=== PATIENT | male | born 1960 | race Caucasian/White ===

== ENCOUNTER 2019-09-07 19:05 | Inpatient (IN) | payer BC ==
[~2019-09-07] VITALS: Ht 172.7 cm; Wt 88.0 kg
[2019-09-07] VITALS (8 sets, daily range): BP systolic 126–158; BP diastolic 74–98
[~2019-09-07 19:05] MED LIST: ALBU0.63 IH; AMOX-355 PO; FEXO180T84 PO; FLUT10SP NS; HYDR-3455 PO; LOSA50TA63 PO; MOME13HF2 IH; PRD20T PO; PRED20TA PO; SIMV40TA25 PO
[2019-09-07] MEDS ORDERED: REMDESIVIR INJ (FREE STOCK) 200 MG in NS (IVPB) 210 ML IV ONE (19:45)
[2019-09-07] MEDS ORDERED: ACETAMINOPHEN 325 MG TABLET PO PRN (19:45)
[2019-09-07] MEDS ORDERED: ONDANSETRON 4 MG/2 ML (SDV) Z0FRAN IV PRN (19:45)
--- NOTE | 2019-09-07 21:00 | NUR ---
Spoke with Dr. Acosta and informed her that the hospital does not stock Remdesivir at night that pharmacy would have to be called in to mix medication. Orders received to hold medication till am.
[2019-09-07] MEDS: NS IV 1000 ML 1,000 ML IV SCH (23:00)
[2019-09-07] MEDS: AZITHROMYCIN INJECTION 500 MG in NS (IVPB) 250 ML IV SCH (23:01)
[2019-09-07] MEDS: CEFEPIME INJECTION 2,000 MG in WATER (STERILE) FOR INJECTION 20 ML IV SCH (23:01)
[2019-09-07] MEDS: ENOXAPARIN 40 MG/0.4 ML (LOVENOX) SYR SC SCH (23:02)
--- NOTE | 2019-09-07 23:20 | NUR ---
Spoke with pt and he states "jacqueline did not give me Remdesivir". Educated pt on Remdesivir fact sheet. Pt consents to administration of Remdesivir. Informed pt he would receive medication in the am. Remdesivir fact sheet given to patient.
[2019-09-07 23:36] LABS: ALBUMIN 3.6 GM/DL (3.2-4.5); CHLORIDE 100 MMOL/L (98-107); POTASSIUM 4.4 MMOL/L (3.6-5.0); SODIUM 134 MMOL/L (135-145)
[2019-09-07 23:37] LABS: CALCIUM 8.4 MG/DL (8.5-10.1)
[2019-09-07 23:38] LABS: GLUCOSE 171 MG/DL (70-105)
[2019-09-07 23:39] LABS: TOTAL PROTEIN 6.8 GM/DL (6.4-8.2)
[2019-09-07 23:40] LABS: BILIRUBIN,TOTAL 0.5 MG/DL (0.1-1.0); CARBON DIOXIDE 22 MMOL/L (21-32)
[2019-09-07 23:42] LABS: ALKALINE PHOSPHATASE 53 U/L (40-136); CREATININE SERUM 0.93 MG/DL (0.60-1.30); GFR ESTIMATED > 60
[2019-09-07 23:43] LABS: BUN/CREATININE RATIO 16
[2019-09-07 23:45] LABS: ALANINE AMINOTRANSFERASE 21 U/L (0-55)
[2019-09-08] VITALS (17 sets, daily range): BP systolic 126–168; BP diastolic 74–97
[2019-09-08 04:18] LABS: BASOPHILS % (AUTO) 0 % (0-10); EOSINOPHILS % (AUTO) 0 % (0-10); HEMATOCRIT 33 % (40-54); HEMOGLOBIN 11.4 G/DL (13.3-17.7); LYMPHOCYTES # (AUTO) 0.7 X 10^3 (1.0-4.0); LYMPHOCYTES % (AUTO) 6 % (12-44); MEAN CORPUSCULAR HEMOGLOBIN 30 PG (25-34); MEAN CORPUSCULAR HGB CONC 35 G/DL (32-36); MEAN CORPUSCULAR VOLUME 87 FL (80-99); MEAN PLATELET VOLUME 9.5 FL (7.4-10.4); MONOCYTES # (AUTO) 0.3 X 10^3 (0.0-1.0); MONOCYTES % (AUTO) 3 % (0-12); NEUTROPHILS # (AUTO) 9.9 X 10^3 (1.8-7.8); NEUTROPHILS % (AUTO) 91 % (42-75); PLATELET COUNT 341 10^3/uL (130-400); RED CELL DISTRIBUTION WIDTH 13.6 % (10.0-14.5); WHITE BLOOD COUNT 10.8 10^3/uL (4.3-11.0)
[2019-09-08 04:44] LABS: ALBUMIN 3.4 GM/DL (3.2-4.5); CHLORIDE 101 MMOL/L (98-107); POTASSIUM 4.2 MMOL/L (3.6-5.0); SODIUM 135 MMOL/L (135-145)
[2019-09-08 04:45] LABS: CALCIUM 8.2 MG/DL (8.5-10.1)
[2019-09-08 04:46] LABS: GLUCOSE 179 MG/DL (70-105)
[2019-09-08 04:47] LABS: TOTAL PROTEIN 6.7 GM/DL (6.4-8.2)
[2019-09-08 04:48] LABS: BILIRUBIN,TOTAL 0.5 MG/DL (0.1-1.0); CARBON DIOXIDE 22 MMOL/L (21-32)
[2019-09-08 04:50] LABS: ALKALINE PHOSPHATASE 52 U/L (40-136); CREATININE SERUM 0.92 MG/DL (0.60-1.30); GFR ESTIMATED > 60; PHOSPHORUS 3.7 MG/DL (2.3-4.7)
[2019-09-08 04:51] LABS: BUN/CREATININE RATIO 18
[2019-09-08 04:53] LABS: ALANINE AMINOTRANSFERASE 21 U/L (0-55); MAGNESIUM 2.5 MG/DL (1.6-2.4)
[2019-09-08 05:22] LABS: ANISOCYTOSIS SLIGHT; ATYPICAL LYMPHOCYTES 2 %; HYPOCHROMASIA SLIGHT; LYMPHOCYTES % (MANUAL) 5 %; MONOCYTES % (MANUAL) 1 %; NEUTROPHILS % (MANUAL) 92 %
[2019-09-08] MEDS: POTASSIUM CL 10MEQ/50ML IVPB 50 ML IV SCH (05:55)
[2019-09-08] MEDS: MAGNESIUM 1 GM/100 ML IVPB 100 ML IV SCH (05:55)
[2019-09-08] MEDS: KCL 20 MEQ TAB (K-DUR) PO SCH (05:57)
--- NOTE | 2019-09-08 07:03 | NUR ---
ORDERS RECEIVED FROM DR. MILIAN PROTOCOL.
[2019-09-08] MEDS ORDERED: REMDESIVIR INJ (FREE STOCK) 200 MG in NS (IVPB) 210 ML IV ONE (08:00)
[2019-09-08] MEDS: dexAMETHasone 6 MG TAB (DECADRON) PO SCH (08:10)
[2019-09-08] MEDS: CEFEPIME INJECTION 2,000 MG in WATER (STERILE) FOR INJECTION 20 ML IV SCH ×2 (08:11→19:32)
[2019-09-08] MEDS ORDERED: TMSL.4C PO (08:27)
[2019-09-08] MEDS ORDERED: MAGN500C15 PO (08:27)
[2019-09-08] MEDS ORDERED: MONT10TA26 PO (08:27)
[2019-09-08] MEDS ORDERED: METH16TA2 PO (08:27)
[2019-09-08] MEDS ORDERED: SIMV80TA21 PO (08:27)
[2019-09-08] MEDS ORDERED: LOSA100T57 PO (08:27)
[2019-09-08] MEDS ORDERED: REMDESIVIR IV ONE (08:29)
[2019-09-08] MEDS ORDERED: ALBU1.25 INH (08:29)
[2019-09-08] MEDS ORDERED: NS IV ONE (08:29)
[2019-09-08] MEDS ORDERED: IPRA0.2S51 IH (08:29)
[2019-09-08] MEDS ORDERED: REMDESIVIR INJ (FREE STOCK) 100 MG in NS (IVPB) 230 ML IV SCH (09:00)
--- NOTE | 2019-09-08 09:25 | Diagnostic Imaging Report ---
INDICATION: Respiratory failure and hypoxia. Comparison made with prior examination from 06/15/2014. FINDINGS: Heart size is normal. There are bibasal infiltrates. There is no pleural effusion or pneumothorax. Mediastinum is unremarkable. IMPRESSION: Bibasal infiltrates left greater than right suspect for pneumonia. Dictated by: Dictated on workstation # [id number]
[2019-09-08] MEDS ORDERED: ALBUTEROL/IPRATROP (COMBIVENT RESPIMAT) 4 GM INHALER IH PRN (10:00)
[2019-09-08] MEDS: NS IV 1000 ML 1,000 ML IV SCH ×2 (10:10→14:11)
--- NOTE | 2019-09-08 10:52 | History & Physical-Hospitalist ---
History of Present Illness HPI/Chief Complaint Pt is a 59yoCM with a PMH of HTN and asthma who was direct admitted due to hypoxia and COVID. He states he became symptomatic on 08/28 and was tested on 09/01 and found out he was positive on 09/03 at [place]. He was discharged from there on 09/04 and had been home monitoring his symptoms and using his inhalers 4x/day. Per ER report he was checking his sats at home and when they dropped to the 70s he decided to seek care in the ER. Per ER MARKET MANAGER he had significant work of breathing and was given solu medrol and a breathing treatment and improved significantly. This morning he states he is feeling better but has a 5 minute coughing spell around 630AM that made his sats drop. He otherwise has no complaints. Source: patient Date Seen 09/08/19 Time Seen by a Provider: 10:47 Attending Physician Ember Acosta MD PCP No,Local Physician Referring Physician Date of Admission Sep 07, 2019 at 20:04 Home Medications & Allergies Home Medications Reviewed patient Home Medication Reconciliation performed by pharmacy medication reconciliations radiation therapy technician and/or nursing. Patients Allergies have been reviewed. Allergies Allergies Coded Allergies lisinopril (Verified Allergy, Severe, ANAPHYLAXIS, 10/16/14) Past Ttcgetl-Jkogqj-Vrziox Hx Past Med/Social Hx: Reviewed Nursing Past Med/Soc Hx Patient Social History Marrital Status: Employed/Student: employed Alcohol Use: Denies Use Recreational Drug Use: No Smoking Status: Never a Smoker Physical Abuse Screen: No Sexual Abuse: No Recent Foreign Travel: No Contact w/other who traveled: No Recent Hopitalizations: Yes (covid positive-[employer]) Recent Infectious Disease Expo: No Immunizations Up To Date Pediatric: Yes Seasonal Allergies Seasonal Allergies: No Past Medical History Respiratory: Asthma Currently Using CPAP: No Currently Using BIPAP: No Cardiac: Hypertension Reproductive: No Sexually Transmitted Disease: No HIV/AIDS: No Musculoskeletal: Chronic Back Pain Hearing Impairment: Hard of Hearing, Bilateral Hearing Aide History of Blood Disorders: No Adverse Reaction to Blood Sage: No Family History Reviewed Nursing Family Hx No Pertinent Family Hx Review of Systems Constitutional: chills, fever, malaise EENTM: no symptoms reported Respiratory: cough, short of breath Cardiovascular: No chest pain Gastrointestinal: No abdominal pain, No nausea, No vomiting Genitourinary: no symptoms reported Musculoskeletal: no symptoms reported Skin: no symptoms reported Psychiatric/Neurological: No Symptoms Reported Physical Exam Physical Exam Vital Signs Vital Signs - First Documented 09/07/19 09/07/19 09/08/19 20:12 20:16 08:15 Temp 37.7 Pulse 80 Resp 23 B/P (MAP) 140/83 (102) Pulse Ox 94 O2 Delivery Nasal Cannula O2 Flow Rate 2.00 FiO2 95 Capillary Refill : Less Than 3 Seconds Height, Weight, BMI Height: 5'8.00" Weight: 199lbs. oz. 90.010309kl; 28.70 BMI Method:Stated General Appearance: No Apparent Distress, WD/WN HEENT: PERRL/EOMI, Moist Mucous Membranes; No Scleral Icterus (L), No Scleral I cterus (R) Neck: Normal Inspection, Supple; No Thyromegaly Respiratory: Lungs Clear, No Accessory Muscle Use; No Wheezing; Other (on 4lpm) Cardiovascular: Regular Rate, Rhythm, No Murmur Gastrointestinal: Normal Bowel Sounds, Non Tender, Soft Extremity: Normal Capillary Refill, No Calf Tenderness, No Pedal Edema Neurologic/Psychiatric: Alert, Oriented x3, Normal Mood/Affect Skin: Normal Color, Warm/Dry Results Results/Procedures Labs Laboratory Tests 09/07/19 23:15 09/08/19 04:10 Patient resulted labs reviewed. Imaging: Reviewed Imaging Report [facility] Talk [place] NAME: KENIA TOM [facility] REC#: [id number] PT STATUS: ADM IN : 1960 PHYSICIAN: EMBER ACOSTA MD ADMIT DATE: 09/07/19/ICU Draft Date of Exam:09/08/19 CHEST 1 VIEW, AP/PA ONLY INDICATION: Respiratory failure and hypoxia. Comparison made with prior examination from 06/15/2014. FINDINGS: Heart size is normal. There are bibasal infiltrates. There is no pleural effusion or pneumothorax. Mediastinum is unremarkable. IMPRESSION: Bibasal infiltrates left greater than right suspect for pneumonia. Dictated on workstation # [id number] Dict: 09/08/19 0854 Trans: 09/08/19 0925 [facility] [id number] Interpreted by: GARRET FREEMAN MD Electronically signed by: Assessment/Plan Admission Diagnosis Acute Hypoxic Respiratory Failure Admission Status: Inpatient Order (span 2 midnights) Reason for Inpatient Admission: see below Assessment and Plan Acute Hypoxic Respiratory Failure COVID19+ Bilateral pneumonia Doing better today Continue Remdesivir, patient agreed to experimental use Continue decadron MAT protol Resume home inhalers and singulair Continue Cefepime and Azithro for pneumonia as procal elevated HTN Resume losartan Hyperglycemia Was on medrol dose pack as an outpatient Currently on decadron Likely due to steroids SSI DVT ppx; Lovenox Clinical Quality Measures DVT/VTE Risk/Contraindication: Risk Factor Score Per Nursin RFS Level Per Nursing on Admit: 3=High EMBER ACOSTA MD Sep 08, 2019 10:52
[2019-09-08] MEDS ORDERED: LOSARTAN 100 MG (COZAAR) TABLET PO NR (11:00)
[2019-09-08] MEDS: ALBUTEROL/IPRATROP (COMBIVENT RESPIMAT) 4 GM INHALER IH SCH ×2 (11:12→16:04)
[2019-09-08] MEDS: inSUlin ASPART (NovoLOG) 1 UNIT/0.01 ML (CHARGE PER UNIT) SC SCH ×3 (12:03→19:32)
[2019-09-08] MEDS: TAMSULOSIN 0.4 MG (FLOMAX) CAP PO SCH (16:48)
[2019-09-08] MEDS ORDERED: MELATONIN 3 MG TABLET PO PRN (17:15)
[2019-09-08] MEDS ORDERED: BENZONATATE 100 MG (TESSALON) CAPSULE PO PRN (17:15)
[2019-09-08] MEDS ORDERED: ANTACID SUSP 30 ML UDC (MYLANTA) PO PRN (17:15)
[2019-09-08] MEDS ORDERED: MILK OF MAGNESIA 400 MG/5 ML 30 ML UDC PO PRN (17:15)
[2019-09-08] MEDS ORDERED: ONDANSETRON 4 MG/2 ML (SDV) Z0FRAN IV PRN (17:15)
[2019-09-08] MEDS ORDERED: ACETAMINOPHEN 325 MG TABLET PO PRN (17:15)
[2019-09-08] MEDS: ADVAIR HFA 115/21 MCG INHALER 8 GM IH SCH (19:15)
[2019-09-08] MEDS: MONTELUKAST 10 MG (SINGULAIR) TAB PO SCH (19:31)
[2019-09-08] MEDS: AZITHROMYCIN INJECTION 500 MG in NS (IVPB) 250 ML IV SCH (19:31)
[2019-09-08] MEDS: ENOXAPARIN 40 MG/0.4 ML (LOVENOX) SYR SC SCH (19:31)
[2019-09-08] MEDS ORDERED: SIMvastatin 40 MG (ZOCOR) TAB PO SCH (21:00)
[2019-09-09 03:18] LABS: BASOPHILS % (AUTO) 0 % (0-10); EOSINOPHILS % (AUTO) 0 % (0-10); HEMATOCRIT 31 % (40-54); HEMOGLOBIN 10.7 G/DL (13.3-17.7); LYMPHOCYTES % (AUTO) 7 % (12-44); MEAN CORPUSCULAR HEMOGLOBIN 30 PG (25-34); MEAN CORPUSCULAR HGB CONC 34 G/DL (32-36); MEAN CORPUSCULAR VOLUME 87 FL (80-99); MEAN PLATELET VOLUME 9.6 FL (7.4-10.4); MONOCYTES # (AUTO) 0.7 X 10^3 (0.0-1.0); MONOCYTES % (AUTO) 5 % (0-12); NEUTROPHILS # (AUTO) 12.5 X 10^3 (1.8-7.8); NEUTROPHILS % (AUTO) 88 % (42-75); PLATELET COUNT 357 10^3/uL (130-400); RED CELL DISTRIBUTION WIDTH 13.5 % (10.0-14.5); WHITE BLOOD COUNT 14.2 10^3/uL (4.3-11.0)
[2019-09-09 03:24] VITALS: BP 145/82
[2019-09-09] MEDS: NS IV 1000 ML 1,000 ML IV SCH (03:25)
[2019-09-09 03:37] LABS: CHLORIDE 106 MMOL/L (98-107); POTASSIUM 4.3 MMOL/L (3.6-5.0); SODIUM 134 MMOL/L (135-145)
[2019-09-09 03:38] LABS: CALCIUM 8.1 MG/DL (8.5-10.1)
[2019-09-09 03:39] LABS: GLUCOSE 153 MG/DL (70-105)
[2019-09-09] MEDS: POTASSIUM CL 10MEQ/50ML IVPB 50 ML IV SCH (03:40)
[2019-09-09 03:41] LABS: CARBON DIOXIDE 19 MMOL/L (21-32)
[2019-09-09] MEDS: KCL 20 MEQ TAB (K-DUR) PO SCH (03:41)
[2019-09-09 03:43] LABS: CREATININE SERUM 0.75 MG/DL (0.60-1.30); GFR ESTIMATED > 60; PHOSPHORUS 2.6 MG/DL (2.3-4.7)
[2019-09-09 03:44] LABS: BUN/CREATININE RATIO 25
[2019-09-09 03:45] LABS: MAGNESIUM 2.6 MG/DL (1.6-2.4)
[2019-09-09] MEDS: MAGNESIUM 1 GM/100 ML IVPB 100 ML IV SCH (03:48)
[2019-09-09] MEDS: inSUlin ASPART (NovoLOG) 1 UNIT/0.01 ML (CHARGE PER UNIT) SC SCH ×4 (05:33→21:00)
[2019-09-09] MEDS: dexAMETHasone 6 MG TAB (DECADRON) PO SCH (06:10)
[2019-09-09] MEDS: ALBUTEROL/IPRATROP (COMBIVENT RESPIMAT) 4 GM INHALER IH SCH ×4 (07:46→19:00)
[2019-09-09] MEDS: ADVAIR HFA 115/21 MCG INHALER 8 GM IH SCH ×2 (07:52→20:00)
[2019-09-09] MEDS: UMECLIDINIUM BROMIDE (INCRUSE ELLIPTA) 7'S IH SCH (07:53)
[2019-09-09] MEDS ORDERED: TIOTROPIUM BROMIDE (SPIRIVA) 5'S INHALER IH SCH (08:00)
[2019-09-09] MEDS: LOSARTAN 100 MG (COZAAR) TABLET PO SCH (08:47)
[2019-09-09] MEDS: CEFEPIME INJECTION 2,000 MG in WATER (STERILE) FOR INJECTION 20 ML IV SCH ×2 (08:47→21:00)
[2019-09-09] MEDS: REMDESIVIR INJ (NON-FORMULARY) 100 MG in NS (IVPB) 230 ML IV SCH (08:47)
[2019-09-09 08:58] VITALS: BP 126/78
[2019-09-09] MEDS ORDERED: REMDESIVIR INJ (FREE STOCK) 100 MG in NS (IVPB) 230 ML IV SCH (09:00)
--- NOTE | 2019-09-09 09:47 | NUR ---
SPOKE WITH PATIENT REGARDING PRONING. HE STATES THAT HE "HAS NEVER BEEN ABLE TO LAY ON MY STOMACH". HE STATED THAT HE "CANNOT SLEEP THAT WAY". ADVISED PATIENT THAT I WOULD REPOSITION BED SO HE COULD WATCH TV AND HE DID NOT HAVE TO SLEEP WHILE PRONED. EXPLAINED THAT THIS WAS FOR HIS LUNGS. PT STATED HE DIDN'T THINK HE WOULD BE ABLE TO LAY ON HIS ABDOMEN BUT WOULD TRY. PT GETTING BLOOD CULTURES DONE PRESENTLY AND HAS ONE HOUR REMAINING ON REMDESEVIR. WILL ASSIST PATIENT TO PRONE POSITION WHEN THIS IS DONE.
[2019-09-09 10:36] VITALS: BP 145/82
--- NOTE | 2019-09-09 12:33 | NUR ---
PT STATES HE IS UNABLE TO TOLERATE PRONE POSITION DUE TO "IT'S UNCOMFORTABLE". ATTEMTS TO EDUCATE PATIENT ON NEED FOR PRONING WERE MADE BUT PATIENT STATED HE "JUST COULDN'T DO IT." PT IS TOLERATING POSITIONING ON HIS SIDE WITH OXYGEN SATS IMPROVING TO 98% WHEN HE DOES THIS. PT STATES HE WILL CONTINUE TO TURN FROM SIDE TO SIDE. PT ASSISTED TO CHAIR AT THIS TIME TO EAT LUNCH. HE STATES HE IS MUCH MORE COMFORTABLE IN THE CHAIR. HE TOLERATED THIS WITHOUT DESAT OR COMPLAINTS. MONITORING CLOSELY.
[2019-09-09 12:37] VITALS: BP 130/72
[2019-09-09 15:01] VITALS: BP 126/74
--- NOTE | 2019-09-09 15:10 | NUR ---
PT TRANSPORTED VIA CHAIR TO ROOM 433 WITH ALL PRECAUTIONS IN PLACE. REPORT CALLED TO 4TH FLOOR RN. ALL PATIENTS PERSONAL BELONGINGS WITH PATIENT INCLUDING CELL PHONE AND TACKER ELASTIC BAND. PT TOLERATED TRANSFER WITHOUT INCIDENT.
--- NOTE | 2019-09-09 15:30 | NUR ---
REPORT RECEIVED FROM COST AND RISK ANALYSIS MANAGER NEMO. PATIENT ARRIVED ON FLOOR AT 1510. PATIENT REQUESTED WATER AND URINAL. BOTH ITEMS WERE BROUGHT TO THE PATIENT. NO OTHER COMPLAINTS AT THIS TIME. WILL CONTINUE TO MONITOR.
[2019-09-09] MEDS: TAMSULOSIN 0.4 MG (FLOMAX) CAP PO SCH (17:52)
[2019-09-09] MEDS: AZITHROMYCIN INJECTION 500 MG in NS (IVPB) 250 ML IV SCH (20:00)
[2019-09-09] MEDS: ENOXAPARIN 40 MG/0.4 ML (LOVENOX) SYR SC SCH (20:00)
--- NOTE | 2019-09-09 20:17 | Progress Note - Hospitalist ---
Subjective HPI/CC On Admission Date Seen by Provider: Sep 09, 2019 Time Seen by Provider: 13:30 Pt is a 59yoCM with a PMH of HTN and asthma who was direct admitted due to hypoxia and COVID. He states he became symptomatic on 08/28 and was tested on 09/01 and found out he was positive on 09/03 at [place]. He was discharged from there on 09/04 and had been home monitoring his symptoms and using his inhalers 4x/day. Per ER report he was checking his sats at home and when they dropped to the 70s he decided to seek care in the ER. Per ER STRUCTURAL METAL FABRICATOR APPRENTICE he had significant work of breathing and was given solu medrol and a breathing treatment and improved significantly. This morning he states he is feeling better but has a 5 minute coughing spell around 630AM that made his sats drop. He otherwise has no complaints. Subjective/Events-last exam He is in his bedside chair. He says he is doing well. He denies any dyspnea. He says his oxygen saturations dropped when he sat on the edge of his bed earlier. He has an intermittent cough. He denies fevers and chills. He denies chest pain. He denies nausea and vomiting. He has no other complaints or concerns. Objective Exam Vital Signs Vital Signs Date Time Temp Pulse Resp B/P (MAP) Pulse Ox O2 Delivery O2 Flow Rate FiO2 09/09/19 15:01 36.5 60 20 126/74 (91) 95 Nasal Cannula 4.00 09/09/19 12:33 98 Capillary Refill : Less Than 3 Seconds General Appearance: No Apparent Distress, WD/WN Respiratory: Lungs Clear, Normal Breath Sounds, No Respiratory Distress Cardiovascular: Regular Rate, Rhythm, No Edema, No Murmur Gastrointestinal: Normal Bowel Sounds, Non Tender, Soft Extremity: Normal Inspection, Non Tender, No Pedal Edema Neurologic/Psychiatric: Alert, Oriented x3, No Motor/Sensory Deficits, Normal Mood/Affect Skin: Normal Color, Warm/Dry Results/Procedures Lab Laboratory Tests 09/09/19 03:09 Patient resulted labs reviewed. Imaging: Reviewed Imaging Report Assessment/Plan Assessment and Plan Assess & Plan/Chief Complaint Acute Hypoxic Respiratory Failure COVID19+ Bilateral pneumonia -Continue Remdesivir, patient agreed to experimental use -Continue decadron -MAT protocol -Continue home inhalers and singulair -Continue Cefepime and Azithromycin for pneumonia with procal elevated -Transfer to medical floor HTN -Continue losartan Steroid-induced hyperglycemia -SSI DVT prophylaxis: Lovenox Diagnosis/Problems Diagnosis/Problems (1) COVID-19 Status: Acute (2) Acute respiratory failure with hypoxia Status: Acute (3) PNA (pneumonia) Status: Acute Clinical Quality Measures DVT/VTE Risk/Contraindication: Risk Factor Score Per Nursin RFS Level Per Nursing on Admit: 3=High YESICA SUNG MD Sep 09, 2019 20:17
[2019-09-09 20:21] VITALS: BP 19/76
[2019-09-09] MEDS ORDERED: CEFEPIME 2 GM (MAXIPIME) VIAL ONE (20:41)
[2019-09-09] MEDS: MONTELUKAST 10 MG (SINGULAIR) TAB PO SCH (21:00)
[2019-09-09 22:14] LABS: ALANINE AMINOTRANSFERASE 48 U/L (0-55); ALBUMIN 3.5 GM/DL (3.2-4.5); ALKALINE PHOSPHATASE 53 U/L (40-136); BILIRUBIN,TOTAL 0.5 MG/DL (0.1-1.0); BUN/CREATININE RATIO 27; CALCIUM 8.5 MG/DL (8.5-10.1); CARBON DIOXIDE 19 MMOL/L (21-32); CHLORIDE 105 MMOL/L (98-107); CREATININE SERUM 0.74 MG/DL (0.60-1.30); GFR ESTIMATED > 60; GLUCOSE 176 MG/DL (70-105); POTASSIUM 4.7 MMOL/L (3.6-5.0); SODIUM 133 MMOL/L (135-145); TOTAL PROTEIN 6.6 GM/DL (6.4-8.2)
[2019-09-10] VITALS: BP 148/72
[2019-09-10 04:00] VITALS: BP 161/58
[2019-09-10] MEDS: dexAMETHasone 6 MG TAB (DECADRON) PO SCH (05:32)
[2019-09-10] MEDS: inSUlin ASPART (NovoLOG) 1 UNIT/0.01 ML (CHARGE PER UNIT) SC SCH ×4 (05:34→20:48)
[2019-09-10 06:07] LABS: BASOPHILS % (AUTO) 0 % (0-10); EOSINOPHILS % (AUTO) 0 % (0-10); HEMATOCRIT 34 % (40-54); HEMOGLOBIN 11.3 G/DL (13.3-17.7); LYMPHOCYTES # (AUTO) 1.3 X 10^3 (1.0-4.0); LYMPHOCYTES % (AUTO) 14 % (12-44); MEAN CORPUSCULAR HEMOGLOBIN 29 PG (25-34); MEAN CORPUSCULAR HGB CONC 33 G/DL (32-36); MEAN CORPUSCULAR VOLUME 87 FL (80-99); MEAN PLATELET VOLUME 10.1 FL (7.4-10.4); MONOCYTES # (AUTO) 0.9 X 10^3 (0.0-1.0); MONOCYTES % (AUTO) 10 % (0-12); NEUTROPHILS % (AUTO) 76 % (42-75); PLATELET COUNT 383 10^3/uL (130-400); RED CELL DISTRIBUTION WIDTH 13.2 % (10.0-14.5); WHITE BLOOD COUNT 9.2 10^3/uL (4.3-11.0)
[2019-09-10 06:29] LABS: ALANINE AMINOTRANSFERASE 42 U/L (0-55); ALBUMIN 3.3 GM/DL (3.2-4.5); ALKALINE PHOSPHATASE 48 U/L (40-136); BILIRUBIN,TOTAL 0.5 MG/DL (0.1-1.0); BUN/CREATININE RATIO 28; CALCIUM 8.5 MG/DL (8.5-10.1); CARBON DIOXIDE 20 MMOL/L (21-32); CHLORIDE 106 MMOL/L (98-107); CREATININE SERUM 0.72 MG/DL (0.60-1.30); GFR ESTIMATED > 60; GLUCOSE 137 MG/DL (70-105); SODIUM 135 MMOL/L (135-145); TOTAL PROTEIN 6.1 GM/DL (6.4-8.2)
[2019-09-10] MEDS: ALBUTEROL/IPRATROP (COMBIVENT RESPIMAT) 4 GM INHALER IH SCH ×4 (07:21→20:39)
[2019-09-10] MEDS: ADVAIR HFA 115/21 MCG INHALER 8 GM IH SCH ×2 (07:22→20:40)
[2019-09-10] MEDS: UMECLIDINIUM BROMIDE (INCRUSE ELLIPTA) 7'S IH SCH (07:23)
[2019-09-10 08:08] VITALS: BP 143/70
[2019-09-10] MEDS ORDERED: CEFEPIME 2 GM (MAXIPIME) VIAL ONE (09:54)
[2019-09-10] MEDS ORDERED: WATER (STERILE) FOR INJECTION 20 ML ONE (09:57)
[2019-09-10] MEDS: CEFEPIME INJECTION 2,000 MG in WATER (STERILE) FOR INJECTION 20 ML IV SCH ×3 (10:00→20:40)
[2019-09-10] MEDS: REMDESIVIR INJ (NON-FORMULARY) 100 MG in NS (IVPB) 230 ML IV SCH (10:18)
[2019-09-10] MEDS: LOSARTAN 100 MG (COZAAR) TABLET PO SCH (10:19)
--- NOTE | 2019-09-10 11:37 | Progress Note - Hospitalist ---
Subjective HPI/CC On Admission Date Seen by Provider: Sep 10, 2019 Time Seen by Provider: 10:15 Pt is a 59yoCM with a PMH of HTN and asthma who was direct admitted due to hypoxia and COVID. He states he became symptomatic on 08/28 and was tested on 09/01 and found out he was positive on 09/03 at [place]. He was discharged from there on 09/04 and had been home monitoring his symptoms and using his inhalers 4x/day. Per ER report he was checking his sats at home and when they dropped to the 70s he decided to seek care in the ER. Per ER SUPERVISOR FINISHING he had significant work of breathing and was given solu medrol and a breathing treatment and improved significantly. This morning he states he is feeling better but has a 5 minute coughing spell around 630AM that made his sats drop. He otherwise has no complaints. Subjective/Events-last exam He reports feeling well. He says he slept okay. He does not feel short of breath. He has had a cough. He denies any fever. He has been eating and drinking well. He denies any nausea or vomiting. He denies any chest pain. He has been up and moving around going to the bathroom. Objective Exam Vital Signs Vital Signs Date Time Temp Pulse Resp B/P (MAP) Pulse Ox O2 Delivery O2 Flow Rate FiO2 09/10/19 10:45 94 Room Air 09/10/19 08:08 36.1 59 20 143/70 (94) 4.00 09/09/19 12:33 98 Capillary Refill : Less Than 3 SecondsLess Than 3 Seconds General Appearance: No Apparent Distress, WD/WN Respiratory: Lungs Clear, Normal Breath Sounds, No Respiratory Distress Cardiovascular: Regular Rate, Rhythm, No Edema, No Murmur Gastrointestinal: Normal Bowel Sounds, Non Tender, Soft Extremity: Normal Inspection, Non Tender, No Pedal Edema Neurologic/Psychiatric: Alert, Oriented x3, No Motor/Sensory Deficits, Normal Mood/Affect Skin: Normal Color, Warm/Dry Results/Procedures Lab Laboratory Tests 09/09/19 21:50 09/10/19 05:42 Patient resulted labs reviewed. Imaging: Reviewed Imaging Report Assessment/Plan Assessment and Plan Assess & Plan/Chief Complaint Acute Hypoxic Respiratory Failure COVID19+ Bilateral pneumonia -Continue Remdesivir and Decadron for COVID -Continue Cefepime and Azithromycin for bacterial pneumonia with procal elevated -Supplemental oxygen as needed, requirement improving -Continue home inhalers and singulair HTN -Continue losartan Steroid-induced hyperglycemia -SSI DVT prophylaxis: Lovenox Diagnosis/Problems Diagnosis/Problems (1) COVID-19 Status: Acute (2) Acute respiratory failure with hypoxia Status: Acute (3) PNA (pneumonia) Status: Acute Clinical Quality Measures DVT/VTE Risk/Contraindication: Risk Factor Score Per Nursin RFS Level Per Nursing on Admit: 3=High YESICA SUNG MD Sep 10, 2019 11:37
[2019-09-10 13:44] VITALS: BP 131/78
[2019-09-10 16:16] VITALS: BP 149/79
[2019-09-10] MEDS: ENOXAPARIN 40 MG/0.4 ML (LOVENOX) SYR SC SCH (18:56)
[2019-09-10] MEDS: TAMSULOSIN 0.4 MG (FLOMAX) CAP PO SCH (18:57)
[2019-09-10] MEDS ORDERED: AZITHROMYCIN 250 MG TAB (ZITHROMAX) PO SCH (19:45)
[2019-09-10 19:58] VITALS: BP 148/80
[2019-09-10] MEDS: MONTELUKAST 10 MG (SINGULAIR) TAB PO SCH (20:41)
[2019-09-11] VITALS: BP 164/65
[2019-09-11 04:00] VITALS: BP 170/80
[2019-09-11 05:36] LABS: BASOPHILS % (AUTO) 0 % (0-10); EOSINOPHILS % (AUTO) 0 % (0-10); HEMATOCRIT 33 % (40-54); HEMOGLOBIN 11.1 G/DL (13.3-17.7); LYMPHOCYTES # (AUTO) 2.1 X 10^3 (1.0-4.0); LYMPHOCYTES % (AUTO) 19 % (12-44); MEAN CORPUSCULAR HEMOGLOBIN 29 PG (25-34); MEAN CORPUSCULAR HGB CONC 34 G/DL (32-36); MEAN CORPUSCULAR VOLUME 86 FL (80-99); MEAN PLATELET VOLUME 9.9 FL (7.4-10.4); MONOCYTES % (AUTO) 9 % (0-12); NEUTROPHILS # (AUTO) 7.8 X 10^3 (1.8-7.8); NEUTROPHILS % (AUTO) 72 % (42-75); PLATELET COUNT 404 10^3/uL (130-400); RED CELL DISTRIBUTION WIDTH 13.1 % (10.0-14.5); WHITE BLOOD COUNT 10.9 10^3/uL (4.3-11.0)
[2019-09-11 05:55] LABS: ALANINE AMINOTRANSFERASE 40 U/L (0-55); ALBUMIN 3.2 GM/DL (3.2-4.5); ALKALINE PHOSPHATASE 44 U/L (40-136); BILIRUBIN,TOTAL 0.6 MG/DL (0.1-1.0); BUN/CREATININE RATIO 29; CALCIUM 8.4 MG/DL (8.5-10.1); CARBON DIOXIDE 18 MMOL/L (21-32); CHLORIDE 107 MMOL/L (98-107); GFR ESTIMATED > 60; GLUCOSE 104 MG/DL (70-105); POTASSIUM 3.9 MMOL/L (3.6-5.0); SODIUM 136 MMOL/L (135-145)
[2019-09-11] MEDS: dexAMETHasone 6 MG TAB (DECADRON) PO SCH (05:57)
[2019-09-11] MEDS: inSUlin ASPART (NovoLOG) 1 UNIT/0.01 ML (CHARGE PER UNIT) SC SCH ×2 (05:58→11:47)
[2019-09-11] MEDS: ALBUTEROL/IPRATROP (COMBIVENT RESPIMAT) 4 GM INHALER IH SCH (07:41)
[2019-09-11] MEDS: UMECLIDINIUM BROMIDE (INCRUSE ELLIPTA) 7'S IH SCH (07:41)
[2019-09-11] MEDS: ADVAIR HFA 115/21 MCG INHALER 8 GM IH SCH (07:41)
[2019-09-11 08:42] VITALS: BP 131/74
[2019-09-11] MEDS: CEFEPIME INJECTION 2,000 MG in WATER (STERILE) FOR INJECTION 20 ML IV SCH (10:10)
[2019-09-11] MEDS: REMDESIVIR INJ (NON-FORMULARY) 100 MG in NS (IVPB) 230 ML IV SCH (10:11)
[2019-09-11] MEDS: LOSARTAN 100 MG (COZAAR) TABLET PO SCH (10:11)
[2019-09-11] MEDS ORDERED: CEFD300C3 PO (11:38)
--- NOTE | 2019-09-11 14:06 | Discharge Summary ---
Discharge Summary Hospital Course Was the Problem List Reviewed?: Yes Problems/Dx: (1) COVID-19 Status: Acute (2) Acute respiratory failure with hypoxia Status: Acute (3) PNA (pneumonia) Status: Acute Qualifiers: Hospital Course Date of Admission: Sep 07, 2019 at 20:04 Admission Diagnosis : Acute hypoxic respiratory failure due to COVID-19 Family Physician/Provider: Teri,Local Physician Date of Discharge: 09/11/19 Discharge Diagnosis: Acute hypoxic respiratory failure due to COVID-19 and community-acquired pneumonia Hospital Course: Beto Saldivar is a 59-year-old male who presented with shortness of breath and was admitted with COVID-19. He was requiring supplemental oxygen which was able to be weaned throughout his hospital stay. He was treated with Remdesivir and Decadron and his symptoms improved. He was treated with IV cefepime and transition to oral Omnicef on discharge to complete a one-week course of antibiotics. he will not need to isolate when he goes home. His symptoms started greater than 10 days ago, he has been afebrile throughout his hospital stay, and his symptoms are improving. He was evaluated for home oxygen on the d ay of discharge but did not require any supplemental oxygen. He should follow- up with his primary care physician in about a week. Labs and Pending Lab Test: Laboratory Tests 09/10/19 16:15: Glucometer 148H 09/10/19 20:36: Glucometer 177H 09/11/19 05:20: White Blood Count 10.9, Red Blood Count 3.78L, Hemoglobin 11.1L, Hematocrit 33L, Mean Corpuscular Volume 86, Mean Corpuscular Hemoglobin 29, Mean Corpuscular Hem oglobin Concent 34, Red Cell Distribution Width 13.1, Platelet Count 404H, Mean Platelet Volume 9.9, Neutrophils (%) (Auto) 72, Lymphocytes (%) (Auto) 19, Monocytes (%) (Auto) 9, Eosinophils (%) (Auto) 0, Basophils (%) (Auto) 0, Neutro phils # (Auto) 7.8, Lymphocytes # (Auto) 2.1, Monocytes # (Auto) 1.0, Eosinophils # (Auto) 0.0, Basophils # (Auto) 0.0, Sodium Level 136, Potassium Level 3.9, Chloride Level 107, Carbon Dioxide Level 18L, Anion Gap 11, Blood Urea Nitrogen 20H, Creatinine 0.70, Estimat Glomerular Filtration Rate > 60, BUN/Creatinine Ratio 29, Glucose Level 104, Calcium Level 8.4L, Corrected Calcium 9.0, Total Bilirubin 0.6, Aspartate Amino Transf (AST/SGOT) 22, Alanine Aminotransferase (ALT/SGPT) 40, Alkaline Phosphatase 44, Total Protein 6.0L, Albumin 3.2 09/11/19 11:46: Glucometer 172H Microbiology 09/09/19 Blood Culture - Preliminary, Resulted No growth 09/07/19 MRSA Screen - Final, Complete MRSA not isolated Home Meds Active Cefdinir 300 Mg Capsule 300 Mg PO BID 5 Days Reported Ipratropium [place] 0.2 Mg/1 Ml Solution 0.2 Mg IH Q6H PRN Albuterol Sulfate 1.25 Mg/3 Ml Vial.neb 1.25 Mg INH Q4H PRN Losartan Potassium 100 Mg Tablet 100 Mg PO DAILY Montelukast Sodium 10 Mg Tablet 10 Mg PO DAILY Simvastatin 80 Mg Tablet 80 Mg PO HS Flomax (Tamsulosin HCl) 0.4 Mg Cap 0.4 Mg PO DAILY Magnesium (Magnesium Oxide) 500 Mg Capsule 500 Mg PO DAILY Assessment/Pt Instructions Take medications as prescribed. Complete her course of antibiotics even appear feeling better. He do not need to isolate when he go home. He should follow-up with her primary care physician in about a week. Return with worsening shortness of breath. Discharge Planning: <30 minutes discharge planning Discharge Instructions Discharge Diet: No Restrictions Activity as Tolerated: Yes Pneumonia Vaccine Order Indica: Yes Discharge Physical Examination Vital Signs Vital Signs Date Time Temp Pulse Resp B/P (MAP) Pulse Ox O2 Delivery O2 Flow Rate FiO2 09/11/19 12:01 57 18 93 Room Air 09/11/19 08:42 36.3 131/74 (93) 09/10/19 20:30 4.00 09/09/19 12:33 98 General Appearance: No Apparent Distress, WD/WN HEENT: PERRL/EOMI, Pharynx Normal Respiratory: Lungs Clear, Normal Breath Sounds, No Respiratory Distress Cardiovascular: Regular Rate, Rhythm, No Edema, No Murmur Gastrointestinal: Normal Bowel Sounds, Non Tender, Soft Extremity: Normal Inspection, Non Tender, No Pedal Edema Skin: Normal Color, Warm/Dry Neurologic/Psychiatric: Alert, Oriented x3, No Motor/Sensory Deficits, Normal Mood/Affect Allergies: Coded Allergies: lisinopril (Verified Allergy, Severe, ANAPHYLAXIS, 10/16/14) Discharge Summary Date of Admission Sep 07, 2019 at 20:04 Date of Discharge Discharge Date: Sep 11, 2019 Discharge Time: 14:05 Admission Diagnosis Acute Hypoxic Respiratory Failure Discharge Diagnosis Acute Hypoxic Respiratory Failure COVID19+ Bilateral pneumonia (1) COVID-19 Status: Acute (2) Acute respiratory failure with hypoxia Status: Acute (3) PNA (pneumonia) Status: Acute Qualifiers: Clinical Quality Measures DVT/VTE Risk/Contraindication: Risk Factor Score Per Nursin RFS Level Per Nursing on Admit: 3=High YESICA SUNG MD Sep 11, 2019 14:05
[2019-09-11] MEDS ORDERED: AZITHROMYCIN 250 MG TAB (ZITHROMAX) PO SCH (21:00)
== END 2019-09-11 13:01 | disposition home or self-care (01) | DRG 177 ==
LOC: ICU 20:04 → 4TH 09-09 14:56
PROVIDERS: ADMIT Family Medicine; ATTEND Internal Medicine
DX: U07.1 COVID-19 (principal); J96.01 Acute respiratory failure with hypoxia; J15.9 Unspecified bacterial pneumonia; R73.9 Hyperglycemia, unspecified; T38.0X5A Adverse effect of glucocorticoids and synthetic analogues, initial encounter; I10 Essential (primary) hypertension; J45.909 Unspecified asthma, uncomplicated; M54.9 Dorsalgia, unspecified; Z97.4 Presence of external hearing-aid
CPT/HCPCS: 36415; 71045; 80048; 80053; 82728; 82962; 83615; 83735; 84100; 84145; 85007; 85025; 85027; 85379; 87040; 87081; 94640; 94664; 94760

== ENCOUNTER 2020-05-27 05:38 | Outpatient (CLI) | payer BC ==
[~2020-05-27] VITALS: Ht 172.7 cm; Wt 101.7 kg
[~2020-05-27 05:38] MED LIST changes: +ALBU1.25 INH; +CEFD300C3 PO; +IPRA0.2S51 IH; +LOSA100T57 PO; +MAGN500C15 PO; +METH16TA2 PO; +MONT10TA32 PO; +SIMV80TA21 PO; +TMSL.4C PO
[2020-05-27] MEDS ORDERED: FLUT1AER3 IH (11:16)
[2020-05-27] MEDS ORDERED: LOSA1TAB23 PO (11:16)
[2020-05-27] MEDS ORDERED: LORA10TA7 PO (11:16)
[2020-05-27] MEDS ORDERED: FLUT9.9S NS (12:33)
[2020-05-27] MEDS ORDERED: LOSA100T57 PO (12:33)
[2020-05-27] MEDS ORDERED: MOME13HF IH (12:33)
[2020-05-27] MEDS ORDERED: VITA15LO2 PO (12:33)
[2020-05-27] MEDS ORDERED: CALC-697 PO (12:33)
[2020-05-27] MEDS ORDERED: TIOT4MIS5 IH (12:33)
[2020-05-27] MEDS ORDERED: METH4TAB PO (12:35)
== END 2020-05-27 12:45 | disposition home or self-care (01) ==
LOC: PREOP 05:38
PROVIDERS: ATTEND Surgery
DX: Z01.818 Encounter for other preprocedural examination (principal)

== ENCOUNTER 2020-06-03 08:12 | Day surgery (SDC) | payer OTHER, BC ==
[~2020-06-03] VITALS: Ht 172.7 cm; Wt 101.7 kg
[2020-06-03] VITALS (11 sets, daily range): BP systolic 119–142; BP diastolic 63–85
[~2020-06-03 08:12] MED LIST changes: +CALC-697 PO; +FLUT1AER3 IH; +FLUT9.9S NS; +LORA10TA7 PO; +LOSA1TAB23 PO; +METH4TAB PO; +MOME13HF IH; +TIOT4MIS5 IH; +VITA15LO2 PO
--- NOTE | 2020-06-03 08:26 | Progress Note-Pre Operative ---
Pre-Operative Progress Note H&P Reviewed The H&P was reviewed, patient examined and no changes noted. Time Seen by Provider: 08:23 Date H&P Reviewed: Jun 03, 2020 Time H&P Reviewed: 08:23 Pre-Operative Diagnosis: Incarcerated Umb hernia NAIF RAY DO Jun 03, 2020 08:25
[2020-06-03] MEDS ORDERED: ceFAZolin 2 GM IV Premixed 50 ML IV ONE (08:30)
[2020-06-03] MEDS ORDERED: LIDOCAINE/EPI 1%-1:100,000 (XYLOCAINE) 20ML ONE (08:35)
[2020-06-03] MEDS: LACTATED RINGERS 1,000 ML IV PRN ×2 (08:35→11:00)
[2020-06-03] MEDS ORDERED: ROCURONIUM 10 MG/ML 5 ML SYRINGE IV ONE (08:41)
[2020-06-03] MEDS ORDERED: GLYCOPYRROLATE 0.2 MG/ML (ROBINUL) 2 ML VIAL ONE (08:41)
[2020-06-03] MEDS ORDERED: proPOfol 200 MG/20 ML (DIPRIVAN) VIAL IV ONE (08:41)
[2020-06-03] MEDS ORDERED: SEVOFLURANE (ULTANE) 15 ML INHAL SOLN ONE (08:41)
[2020-06-03] MEDS ORDERED: NEOSTIGMINE 3 MG/3 ML VIAL ONE (08:41)
[2020-06-03] MEDS ORDERED: LIDOCAINE PF 2% 5 ML (XYLOCAINE) VIAL ONE (08:41)
[2020-06-03] MEDS ORDERED: ONDANSETRON 4 MG/2 ML (SDV) Z0FRAN ONE (08:41)
[2020-06-03] MEDS ORDERED: fentaNYL INJ 100 MCG/2 ML AMP ONE (08:42)
[2020-06-03] MEDS ORDERED: MIDAZOLAM 2 MG/2 ML (VERSED) VIAL ONE (08:42)
[2020-06-03] MEDS ORDERED: FEXO-14 PO (09:59)
[2020-06-03] MEDS ORDERED: DIPH25CA79 PO (09:59)
[2020-06-03] MEDS ORDERED: morphine INJ 10 MG/ML 1ML (SYR OR VIAL) IVP ONE (10:45)
[2020-06-03] MEDS ORDERED: ONDANSETRON 4 MG/2 ML (SDV) Z0FRAN IVP PRN (10:45)
[2020-06-03] MEDS ORDERED: HYDROmorphone 2 MG/ML VIAL (DILAUDID) IV ONE (10:45)
[2020-06-03] MEDS ORDERED: HYDROmorphone 2 MG/ML VIAL (DILAUDID) ONE (11:18)
[2020-06-03] MEDS ORDERED: ACHD5005 PO (11:27)
--- NOTE | 2020-06-03 11:27 | Progress Note-Post Operative ---
Post-Operative Progess Note Surgeon (s)/Fabric Normalizer (s) Surgeon NAIF RAY DO Fabric Normalizer: Cat Pre-Operative Diagnosis Incarcerated Umb hernia Post-Operative Diagnosis Same plus incarcerated vental hernia Procedure & Operative Findings Date of Procedure 06/03/20 Procedure Performed/Findings PROCEDURE: Laparoscopic umbilical hernia repair with mesh. Laparoscopic ventral hernia repair with mesh COMPLICATIONS: None. INDICATIONS: The patient is a 59, male with an incarcerated umbilical hernia, which has continued to increase in size and cause discomfort. The patient was explained the risk and benefits of the procedure and wished to proceed with the procedure. Consent was signed on the chart. DESCRIPTION OF PROCEDURE: The patient was taken into the operating suite, prepped and draped in sterile fashion. Surgical pause was performed. Local anesthetic was infiltrated in left upper quadrant. A #11 blade scalpel was used to make a small skin incision. Cautery was used to dissect down to the fascia, which was then scored and divided the muscle, went through the posterior sheath and a balloon trocar was inserted into the abdomen. The abdomen was then insufflated. A 5 mm trocar was placed in the right lower quadrant and a 5 mm trocar was placed in left lower quadrant. Incarcerated umbilical hernia was seen and then while taking down the falciform to place the mesh an incarcerated ventral hernia was found, pictures were taken. Echo Ventralight mesh was then inserted in the abdomen grabbed through the stab incision. The balloon was inflated on the mesh. Circumferential tacks were placed with a SecureStrap Tacker. The balloon was then removed and inner crown was created as well. The mesh was tacked with pressure being decreased. The 12 mm fascial defect was then closed using 0 Vicryl. The abdomen was then desufflated,the trocars were removed. The skin was then closed using 4-0 Monocryl in a running subcuticular fashion. The abdomen was washed and dried and Skin Affix was placed over the incisions. The patient tolerated procedure well without any complications. She was taken to recovery room in stable condition. Dr. Shelton assisted on this case helping to make incisions, close incisions, identify anatomy and hold anatomy out of the way. Anesthesia Type GET Estimated Blood Loss Estimated blood loss (mL): scant Specimens/Packing Specimens Removed ventral hernia contents NAIF RAY DO Jun 03, 2020 11:27
--- NOTE | 2020-06-03 11:28 | Discharge Inst-Surgical ---
Discharge Inst-Surgical Depart Medication/Instructions New, Converted or Re-Newed RX: RX Given to Pt/Family Patient Instructions Follow up Appt: Make appointment for 1 week. [phone] Instructions: No lifting greater than 20 pounds. No strenuous activity. May shower in 24 hours, no tub bath or soaking. Use incentive spirometer at home as directed. No Smoking Skin/Wound Care: May remove bandages in am. You need to leave the Dermabond on incision it will fall off on it's own. Symptoms to Report: Appetite Changes, Extremity Discoloration, Numbness/Tingling, Swelling Increased, Bleeding Excessive, Eyesight Changes, Pain Increased, Urine Color Change, Constipation(Persistent), Fever over 101 degree F, Pain/Pressure in chest, Urinating Difficulty, Cough Up/Vomit Blood, Heart Beat Irreg/Pounding, Pain/Pressure in jaw, Cramps in feet or legs, Lightheadedness, Pain/Pressure in shoulder, Diarrhea(Persistent), Memory Changes Suddenly, Questions/Concerns, Weight gain consecutive days, Dizziness/Fainting, Nausea/Vomiting, Shortness of Breath, Weight gain over 2 pounds If questions or concerns contact your physician Or seek help at emergency department. Activity Activity as Tolerated: Yes Activity Instructions: Avoid Stress to Incision Driving Instructions: No Driving for 2 Weeks Diet Discharge Diet: No Restrictions Diet After 24 Hours: Clear Liquid if Nauseous If Any Problems/Questions/Issu: Contact Your Physician, Go to Emergency Room Skin/Wound Care Infection Signs and Symptoms: Increased Redness, Foul Odor of Wound, Increased Drainage, Skin Itchy or Has a Rash, Increased Swelling, Temperature Above 101 F Wound Care Comment: heating pad to shoulder or neck tonight for pain Bathing Instructions: Shower Stitches/Javier/Dermabond Dis: Dermabond NAIF RAY DO Jun 03, 2020 11:28
[2020-06-03] MEDS ORDERED: HYDROcodone/APAP 5 MG/325 MG (LORTAB) TAB ONE (12:35)
--- NOTE | 2020-06-03 12:35 | Anesthesia-General Post-Op ---
General Patient Condition Mental Status/LOC: Same as Preop Cardiovascular: Satisfactory Nausea/Vomiting: Absent Respiratory: Satisfactory Pain: Controlled Complications: Absent Post Op Complications Complications None Follow Up Care/Instructions Patient Instructions None needed. Anesthesia/Patient Condition Patient Condition Patient is doing well, no complaints, stable vital signs, no apparent adverse anesthesia problems. SAUL HOOVER DO Jun 03, 2020 12:35
[2020-06-03] MEDS ORDERED: HYDROcodone/APAP 5 MG/325 MG (LORTAB) TAB PO ONE (12:45)
== END 2020-06-03 14:30 | disposition home or self-care (01) ==
LOC: SDC 08:12
PROVIDERS: ATTEND Surgery
DX: K42.0 Umbilical hernia with obstruction, without gangrene (principal); K43.6 Other and unspecified ventral hernia with obstruction, without gangrene; I10 Essential (primary) hypertension; J45.909 Unspecified asthma, uncomplicated; E78.5 Hyperlipidemia, unspecified; E66.01 Morbid (severe) obesity due to excess calories; Z68.34 Body mass index [BMI] 34.0-34.9, adult; Z79.899 Other long term (current) drug therapy; Z79.51 Long term (current) use of inhaled steroids; Z88.8 Allergy status to other drugs, medicaments and biological substances; Z83.3 Family history of diabetes mellitus
CPT/HCPCS: 49653 ×2; 87081; 94664; C1781